=== PATIENT | female | born 1975 | race Caucasian/White ===

== ENCOUNTER → 2016-05-21 | Outpatient (CLI) | payer BC ==
[2016-05-21 11:49] LABS: FREE T4 (FREE THYROXINE) 3.91 ng/dL (0.93-1.71)
== END ==
LOC: MOB LAB 09:45
PROVIDERS: ATTEND Nurse Practitioner Family
DX: F33.1 Major depressive disorder, recurrent, moderate (principal); F41.1 Generalized anxiety disorder; F17.210 Nicotine dependence, cigarettes, uncomplicated
CPT/HCPCS: 36415; 84439; 84443

== ENCOUNTER → 2016-05-24 | Outpatient (CLI) | payer BC | LOC: MOB LAB 16:45 | PROVIDERS: ATTEND Nurse Practitioner Family | DX: E05.90 Thyrotoxicosis, unspecified without thyrotoxic crisis or storm (principal) | CPT/HCPCS: 36415; 84481; 86376 ==

== ENCOUNTER → 2016-05-29 | Outpatient (CLI) | payer BC ==
--- NOTE | 2016-05-30 09:33 | DI ---
THYROID ULTRASOUND, 05/29/2016 4:09 PM Clinical History: Hyperthyroidism Previous Exam: None. Scans are performed through both lobes of the thyroid gland in multiple projections with the high res olution linear array probe. Color Doppler ultrasound is also performed. Both lobes of the thyroid gland revealed an inhomogeneous texture with focal areas of hypoechogenicit y. There is also hypervascularity. These changes can be seen in Graves' disease were the hypoechoic a reas are presumed to represent lymphocytic deposits. The increased vascularity is not quite as intens e as that typically visualized by Doppler ultrasound during the active phase of Graves' disease that is typically termed thyroid "inferno". The right and left lobes measure 17 x 21 x 56 mm, and 17 x 20 x 48 mm, in the AP, transverse, and longitudinal dimensions, respectively. There is no dominant mass or nodule to suspect a solitary hyperfunctioning nodule. Reading: Heterogeneous texture of the thyroid gland with areas of hypoechogenicity and increased vascularity c onsistent with the clinical diagnosis of hyperthyroidism. There is no dominant mass identified.
== END ==
LOC: US 16:07
PROVIDERS: ATTEND Nurse Practitioner Family
DX: E05.90 Thyrotoxicosis, unspecified without thyrotoxic crisis or storm (principal); F41.1 Generalized anxiety disorder
CPT/HCPCS: 76536

== ENCOUNTER 2016-12-03 07:52 | Observation (INO) | payer BC ==
[~2016-12-03 07:52] MED LIST: LIDOCAINE MPF 2% - 5 ML (20 MG/1 ML) ONE; LIDOCAINE W/ SODIUM BICARB 0.5 ML SYR ONE; Lactated Ringers 2,000 ML PRIMARY IV ONE; MIDAZOLAM 5 MG/1 ML ONE; ROCURONIUM 10 MG/1 ML - 5 ML VIAL IVP ONE; Sodium Chloride 0.9% 100 ML IV ONE; fentaNYL Inj 250 MCG/5 ML VIAL ONE
[2016-12-03 08:22] LABS: BILIRUBIN,URINE SMALL (NEG); CLARITY,URINE CLOUDY (CLEAR); COLOR,URINE YELLOW; GLUCOSE, URINE (UA) NEGATIVE (NEG); NITRATE,URINE NEGATIVE (NEG); OCCULT BLOOD,URINE NEGATIVE (NEG); PROTEIN,URINE 30 mg/dl (NEG); UROBILINOGEN,URINE 0.2 EU/dL (0.2)
[2016-12-03 08:27] LABS: URINE SPECIFIC GRAVITY - MAN 1.025
[2016-12-03 08:29] LABS: BACTERIA,URINE MANY; RBC,URINE 0 /hpf; SQUAMOUS EPITHELIAL CELL,UR MANY; URINE SAMPLE TYPE VOIDED SPECIMEN; URINE SPECIFIC GRAVITY - MAN 1.025; WBC,URINE 0
[2016-12-03 08:46] LABS: HEMATOCRIT 37.5 % (37.0-47.0); HEMOGLOBIN 12.6 g/dL (12.0-16.0)
[2016-12-03] MEDS ORDERED: SCOPOLAMINE HYDROBROMIDE 1.5 MG - 1 EACH PATCH TRANSDERM ONE (09:11)
[2016-12-03] MEDS ORDERED: ONDANSETRON 4 MG/2 ML VIAL ONE (09:12)
[2016-12-03] MEDS ORDERED: DEXAMETHASONE SOD PHOSPHATE 4 MG/1 ML VIAL ONE (09:12)
[2016-12-03] MEDS ORDERED: Prochlorperazine Edisylate Inj 10mg/2ml vial IVP PRN (09:21)
[2016-12-03] MEDS ORDERED: fentaNYL Inj 100 MCG/2 ML VIAL IVP PRN (09:21)
[2016-12-03] MEDS ORDERED: NORMAL SALINE 10 ML SYRINGE FLUSH IVP PRN ×3 (09:21→15:47)
[2016-12-03] MEDS ORDERED: Lactated Ringers 1,000 ML PRIMARY IV SCH (09:30)
[2016-12-03] MEDS ORDERED: LIDOCAINE HCL 2 % 10 ML JELLY URO-JECT TOPICAL ONE (09:43)
[2016-12-03] MEDS ORDERED: METOPROLOL TARTRATE 5 MG/5 ML VIAL ONE (10:07)
[2016-12-03] MEDS ORDERED: KETAMINE 100 MG/1 ML - 5 ML ONE (10:12)
[2016-12-03] MEDS ORDERED: SUFENTANIL 50 MCG/1 ML ONE (10:14)
[2016-12-03] MEDS ORDERED: Opium-Belladonna 30-16.2mg 1 EACH SUPP.RECT RECTAL ONE (10:17)
[2016-12-03] MEDS ORDERED: SUGAMMADEX SODIUM 200 MG/2 ML VIAL IV ONE (10:45)
[2016-12-03] MEDS ORDERED: KETOROLAC 30 MG/1 ML VIAL ONE (11:03)
[2016-12-03] MEDS ORDERED: KETOROLAC 15 MG/1 ML VIAL IVP PRN ×2 (11:14→15:47)
[2016-12-03] MEDS ORDERED: Ondansetron ODT Tab 8 MG TAB PO PRN ×2 (11:14→15:47)
[2016-12-03] MEDS ORDERED: oxyCODONE IR Tab 5 MG TAB PO PRN (11:14)
--- NOTE | 2016-12-03 11:19 | OB.OP.NOTE ---
Operative Report Surgeon: Jamie Senior Data Mining Analyst: Chidi Polanco MD Anesthesia Type: General Anesthesia Provider: Daron Alba CRNA Surgery Date: 12/03/16 Preoperative Diagnosis: MMR/Dysmenorrhea Postoperative Diagnosis: Same Procedure: da Simba Hysterectomy/Bilateral Salpingectomy/Cystoscopy Estimated Blood Loss (mL): 20 Fluids: 2400 Complications: None Findings at Surgery: Normal appearing uterus and ovaries. Tubes s/p BTL. No visible evidence of bowel, bladder, or ureter injury. At cysto, both ureters ejected urine and the bladder was intact. Indications for the Procedure: MMR/Dysmenorrhea Description of Procedure: See dictated operative report. Plan: Routine post op care and discharge to home.
[2016-12-03] MEDS ORDERED: IPRATROPIUM/ALBUTEROL SULFATE 3 ML NEB NEB ONE ×2 (11:40→11:45)
[2016-12-03] MEDS: HYDROmorphone 2 MG/1 ML IVP PRN ×9 (11:45→20:59)
[2016-12-03] MEDS ORDERED: Acetaminophen 1000mg Inj 100 ML IV ONE (14:10)
[2016-12-03] MEDS: oxyCODONE IR Tab 5 MG TAB PO PRN ×2 (16:32→20:45)
[2016-12-03] MEDS ORDERED: Rivaroxaban Tab 10 MG TAB PO SCH (21:00)
[2016-12-03] MEDS ORDERED: DOCUSATE 100 MG CAPSULE PO SCH (21:00)
[2016-12-04] MEDS: oxyCODONE IR Tab 5 MG TAB PO PRN ×2 (00:39→06:41)
[2016-12-04] MEDS: HYDROmorphone 2 MG/1 ML IVP PRN ×2 (01:48→05:37)
[2016-12-04 07:04] VITALS: RESP 19; TEMP 98.6
--- NOTE | 2016-12-04 07:45 | DCSUMMARY ---
Hospitalization Summary Admit Date: 12/03/16 Discharge Date: 12/04/16 Primary Diagnosis:: MMR/Dysmenorrhea Hospital Course: The patient underwent an uncomplicated robotic hysterectomy on 12/03. She was kept overnight for observation due to pain. She was feeling much better on POD 1 and was discharged to home in good condition. Exam - Vitals Vital Signs: Vital Signs Temperature 98.6 F Temperature Source Temporal Artery Scan Pulse Rate [Apical] 100 Pulse Rate [Pulse Oximeter] 103 Pulse Rate 102 Respiratory Rate 19 Blood Pressure [Right Arm] 144/82 Blood Pressure 129/84 Pulse Ox 95 Oxygen Flow Rate 3.5 Oxygen Flow Rate 2 Oxygen Delivery Method Room Air Height 5 ft 2 in Weight 142 lb 9.6 oz
--- NOTE | 2016-12-04 07:46 | PDOC(PROG) ---
Subjective Post Op Day: 1 Pain Management: PO [place] Catheter: No Flatus: Yes Diet: Regular Ambulating: Yes Concerns / Additional Information: Ayaka is feeling much better this morning. She would like to go home zena. Assesstment / Plan Assessment / Plan: POD 1, doing well. Discharge to home.
[2016-12-04] MEDS ORDERED: Rivaroxaban Tab 10 MG TAB PO SCH (09:00)
== END 2016-12-04 08:35 | disposition home or self-care (01) ==
LOC: SDSC 07:52 → MED/SURG 15:40
PROVIDERS: ADMIT Obstetrics & Gynecology; ATTEND Obstetrics & Gynecology
DX: N92.0 Excessive and frequent menstruation with regular cycle (principal); N94.6 Dysmenorrhea, unspecified
CPT/HCPCS: 58552; 81001; 84703; 85014; 85018; 94640; 94761; 96374; J0131; J0694; J1100; J1170 ×2; J1885; J2001; J2250; J2405; J2704; J3010; J7620; J7050; J7120

== ENCOUNTER 2016-12-08 21:25 | Emergency (ER) | payer BC ==
[2016-12-08] MEDS ORDERED: Sodium Chloride 0.9% 1,000 ML ONE (21:29)
[2016-12-08] MEDS ORDERED: ONDANSETRON 4 MG/2 ML VIAL IVP ONE (21:32)
[2016-12-08] MEDS ORDERED: Sodium Chloride 0.9% 1,000 ML PRIMARY IV ONE (21:32)
[2016-12-08] MEDS ORDERED: NORMAL SALINE 10 ML SYRINGE FLUSH IVP PRN (21:32)
[2016-12-08] MEDS ORDERED: MORPHINE SULFATE 2 MG/1 ML IV ONE (21:32)
--- NOTE | 2016-12-08 21:35 | PDOC ---
Abdomen/Flank HPI - General Chief Complaint: Abdomen Pain Stated Complaint: abd pain Date Seen by Provider: 12/08/16 Time Seen by Provider: 21:32 Source: POSITIVE: Patient Exam Limitations: POSITIVE: No limitations Nurse's Notes Reviewed & Considered: Yes - Patient Home Medications Home Medications: Home Medications Albuterol/Ipratrop Neb Soln [Duoneb Neb Soln] 3 ml INH Q4H PRN PRN #1 box Rivaroxaban [Xarelto] Sample #30 11/18/15 Albuterol Sulfate [Proair Hfa] 1 - 2 puff INH Q4-6H PRN #1 inhaler 10/09/16 Atovaquone/Proguanil HCl [Malarone 250-100 mg Tablet] 1 tab PO DAILY #37 tab 10/20 Budesonide/Formoterol Fumarate [SYMBICORT] 2 inh IH BID #1 hfa.aer.ad 10/09/16 Montelukast Sodium [Singulair] 1 tab-cap PO QHS #30 tab 10/09/16 Docusate Sodium [Colace] 100 mg PO BID #60 cap 12/03/16 Ondansetron Odt [Zofran Odt] 8 mg PO Q6H PRN #5 tab 12/03/16 oxyCODONE IR Tab [OxyIR Tab] 5 mg PO Q4H PRN #30 tab 12/03/16 Oxycodone HCl/Acetaminophen [Oxycodone-Acetaminophen 5-325] 1 - 2 tab PO Q6-8H PRN #25 tab 12/07/16 - Patient Allergies Allergies/Adverse Reactions: Allergies Allergy/AdvReac Type Severity Reaction Status Date / Time No Known Allergies Allergy Verified 12/03/16 18:20 Past Medical History - heen HEENT History: Other (please comment) Additional HEENT History: ALLERGIC RHINITIS Cardiovascular History: Hypertension Additional Cardiovasular History: PAST-HTN Respiratory History: Asthma, Shortness of Breath Gastrointestinal History: Other (please comment) Additional Gastrointestinal History: ABDOMINAL SURGERY ON MAY 20, 2012. BOWEL RESECTION Genitourinary History: Denies History Endocrine History: Hyperthyroidism Musculoskeletal History: Back Pain, Other (please comment) Prosthesis or Implant: Yes (METAL RODS IN BACK) Additional Musculoskeletal History: spinal stenosis, SCOLIOSIS. 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 ANTIPHOSPHOLIPID SYNDROME. PROTEIN S DEFICIENCY. MESENTERIC THROMBOEMBOLISM Psychiatric History: Depression, Bi Polar Disorder Additional Psychiatric History: PAST ISSUES History of Sexually Transmitted Diseases: Yes (VAGINAL TRICHOMONIASIS) Cancer History: Denies History History of MDRO: No History of Other Communicable Diseases: No Alcohol Use: Rarely Substance Use Type: None Previous Surgical History: Yes Type / Date of Surgery: BACK SURGERY FOR SCOLEOSIS 1988, BILATERAL WRIST SURGERY 1995, TUBAL LIGATION 2003, SINUS SURGERY 2004, COLON RESECTION 2012, T&A , TYMPANIC TUBES Anesthesia Reactions: No Malignant Hyperthermia: No Significant Family History: Cancer, Diabetes, Hypertension ROS - Limitations ROS Limitations: No Limitations Constitution: REPORTS: Fever. DENIES: Chills Cardiovascular: DENIES: Chest Pain Respiratory: REPORTS: Hurts To Breathe, Shortness Of Breath. DENIES: Cough Productive Neurological: DENIES: Dizziness Gastrointestinal: REPORTS: Abdominal Pain. DENIES: Nausea, Vomitting, Diarrhea , Black Stools Endocrine: REPORTS: Other ("Thyroid issue") Musculoskeletal: DENIES: Muscle Aches Genitourinary: DENIES: Dysuria, Hematuria ENT: DENIES: Congestion, Nasal Drainage Abdominal/Flank Pain PE - General Appearance General Appearance: POSITIVE: Alert, Cooperative, Severe Distress - HEENT HEENT: NEGATIVE: Scleral Icterus - Neck Neck: POSITIVE: Normal Inspection, No Apparent Injury - Respiratory Respiratory: POSITIVE: No Respiratory Distress, Breath Sounds Normal. NEGATIVE : Wheezes, Rales, Rhonchi - Cardiovascular Cardiovascular: POSITIVE: Heart Sounds Normal, Tachycardia. NEGATIVE: Murmur - Chest Chest: POSITIVE: Non Tender - Abdomen Additional Abdominal Details: Abdomen is soft, nondistended, she has significant tenderness to palpation in the right upper and right lower quadrants, mild guarding no rebound, hypoactive bowel sounds, no obvious organomegaly. - Skin Skin: POSITIVE: Warm, Dry, No Rash Abdomen Progress - Results Reviewed by me Xrays/CTs/US Reviewed by me: Yes Discussed with Radiologist: Yes Radiology Findings: No acute infection, constipation. Lab Results Reviewed: Yes Lab Results:: Laboratory Results 12/08/16 12/09/16 Range/Units 21:35 00:08 WBC 7.24 (4.8-10.8) 10^3/uL RBC 4.81 (4.20-5.40) 10^6/uL Hgb 12.9 (12.0-16.0) g/dL Hct 37.2 (37.0-47.0) % MCV 77.3 L (81-99) FL MCH 26.8 L (27-31) PG MCHC 34.7 (33-37) g/dL RDW Std Deviation 35.4 L (39-50) fL RDW Coeff of Veronica 12.8 (11.5-14.5) % Plt Count 361 H (140-350) 10*3/uL MPV 9.4 (7.4-12.2) FL Immature Gran % (Auto) 0.1 (0-5) % Neut % (Auto) 48.5 L (50-80) % Lymph % (Auto) 38.8 (10-50) % [place] % (Auto) 10.5 (5-15) % Eos % (Auto) 1.4 (0-8) % Baso % (Auto) 0.7 (0-1) % Immature Gran # (Auto) 0.01 10*3/UL Neut # (Auto) 3.51 10*3/UL Lymph # (Auto) 2.81 10*3/uL [place] # (Auto) 0.76 (0.3-0.8) 10*3/UL Eos # (Auto) 0.10 10*3/UL Baso # (Auto) 0.05 10*3/UL WBC Morphology Comment Normal morphology (NORM) Plt Morphology Comment Normal morphology (NORM) RBC Morph Comment Normal morphology (NORM) Sodium 136 (135-145) meq/L Potassium 4.2 (3.8-5.2) meq/L Chloride 102 (98-112) meq/L Carbon Dioxide 25 (23-33) meq/L Anion Gap 9 (5-20) BUN 9 (7-22) mg/dL Creatinine 0.5 (0.50-1.20) mg/dL Estimated GFR > 60 (>60 ml/min/1.73m(2)) BUN/Creatinine Ratio 18.00 (6-20) Glucose 97 (78-110) mg/dL Calculated Osmolality 280.0 (267-292) mOsm/kg Calcium 9.9 (8.7-10.7) mg/dL Total Bilirubin 0.7 (0.3-1.2) mg/dL AST 37 (8-39) IU/L ALT 40 (9-52) IU/L Alkaline Phosphatase 134 H (38-126) IU/L Total Protein 7.8 (6.1-8.0) g/dL Albumin 4.1 (3.5-4.8) g/dL Globulin 3.7 (2.50-4.10) g/dL Albumin/Globulin Ratio 1.10 L (1.3-2.0) mg/g Amylase 33 (30-110) U/L Lipase 39 (23-300) IU/L Ur Collection Type Clean catch urine Urine Color Yellow Urine Clarity Slightly cloudy (CLEAR) Urine pH 7.5 (5.0-8.5) Ur Specific [place] 1.015 (1.005-1.030) Urine Protein Negative (NEG) mg/dl Urine Glucose (UA) Negative (NEG) mg/dL Urine Ketones Negative (NEG) Urine Occult Blood Negative (NEG) Urine Nitrate Negative (NEG) Urine Bilirubin Negative (NEG) Urine Urobilinogen 0.2 (0.2) EU/dL Ur Leukocyte Esterase Negative (NEG) Ur Culture Indicated? Culture not set - Patient's Progress Pain Medication Addressed: POSITIVE: Yes Re-examine Time: 23:33 Re-Examine Comment: Patient is improved, labs and CT results were discussed with the patient and her . She'll be given a dose of Bentyl as well as lactulose. Status: POSITIVE: Improved MDM / ED Course: Emergency room course: After initial evaluation, an IV was started. Blood work was drawn. She is given Zofran and morphine for pain, which controlled her pain relatively well. Once labs and CT results reviewed, they're discussed the patient and . The diagnosis seems to be constipation at this time. She will be given a dose of lactulose as well as Bentyl. She will be discharged with her prescriptions for both. Return to the emergency department if pain gets significantly worse or if fever develops. - Consult Counseled: POSITIVE: Patient, Family, RE: Lab Results, RE: Radiology Results, RE : DX, RE: Need for F/U Patient Care Time - Estimated PCT Patient Care Time (In Minutes): 20 Vital Signs - Recent Vital Signs Vital Signs: Vital Signs (Last 8 hours) Temp Pulse Resp BP Pulse Ox 12/08/16 23:25 108 H 18 121/75 96 12/08/16 23:15 106 H 18 125/78 96 12/08/16 23:00 103 H 18 126/76 94 12/08/16 22:49 108 H 20 140/86 90 12/08/16 22:15 99 20 125/76 92 12/08/16 21:25 98 F 107 H 20 147/97 98 Discharge Clinical Impression: Constipation due to opioid therapy Discharge Disposition: Discharged to Home Condition: Stable Patient Instructions Given at Discharge: Constipation (ED)
[2016-12-08 21:44] LABS: BASOPHILS # (AUTO) 0.05 10*3/UL; BASOPHILS % (AUTO) 0.7 % (0-1); EOSINOPHILS % (AUTO) 1.4 % (0-8); HEMATOCRIT 37.2 % (37.0-47.0); HEMOGLOBIN 12.9 g/dL (12.0-16.0); LYMPHOCYTES # (AUTO) 2.81 10*3/uL; MEAN CORPUSCULAR HEMOGLOBIN 26.8 PG (27-31); MEAN CORPUSCULAR HGB CONC 34.7 g/dL (33-37); MEAN CORPUSCULAR VOLUME 77.3 FL (81-99); MEAN PLATELET VOLUME 9.4 FL (7.4-12.2); MONOCYTES # (AUTO) 0.76 10*3/UL (0.3-0.8); MONOCYTES % (AUTO) 10.5 % (5-15); NEUTROPHILS # (AUTO) 3.51 10*3/UL; NEUTROPHILS % (AUTO) 48.5 % (50-80); RED BLOOD COUNT 4.81 10^6/uL (4.20-5.40)
[2016-12-08 21:46] LABS: PLATELET MORPHOLOGY COMMENT NORMAL MORPHOLOGY (NORM); RBC MORPHOLOGY COMMENT NORMAL MORPHOLOGY (NORM); WBC MORPHOLOGY COMMENT NORMAL MORPHOLOGY (NORM)
[2016-12-08 21:54] LABS: BLOOD UREA NITROGEN 9 mg/dL (7-22); CALCIUM 9.9 mg/dL (8.7-10.7); EST GLOMERULAR FILTRATION > 60 (>60 ml/min/1.73m(2)); LIPASE 39 IU/L (23-300); SERUM ALBUMIN 4.1 g/dL (3.5-4.8)
[2016-12-08 22:53] VITALS: TEMP 98
--- NOTE | 2016-12-08 23:15 | DI ---
HISTORY: Abdominal pain. COMPARISON: None available. TECHNIQUE: CT of the abdomen and pelvis was performed with contrast and submitted for interpretation. FINDINGS: The heart is normal in size and the lung bases are unremarkable. The liver is grossly unremarkable. The spleen is within normal limits. The gallbladder is grossly u nremarkable. There is no biliary ductal dilatation. The pancreas and adrenal glands are unremarkabl e. The kidneys are normal in size and shape. There is no evidence of renal calculi, hydronephrosis, or solid renal masses. Distal ileal anastomotic suture line is noted and appears intact. There is a moderate amount of stoo l throughout the colon with fecalization of the distal ileum, characteristic of chronic constipation. There is suggestion of a nonobstructed left internal hernia. The remainder of the imaged bowel, me sentery, and omentum are unremarkable without evidence of obstruction or perforation. The appendix i s unremarkable. There is no lymphadenopathy by size criteria. There is no ascites. Partially imaged corrective spinal rods are noted. No acute skeletal pathology is seen. IMPRESSION: 1. No acute intra-abdominal pelvic pathology. 2. Sequela of chronic constipation as described. No evidence of bowel obstruction.
[2016-12-08] MEDS ORDERED: DICYCLOMINE 20 MG TABLET PO ONE (23:25)
[2016-12-08] MEDS ORDERED: LACTULOSE 20 GM PACKET PO ONE (23:26)
[2016-12-08 23:31] VITALS: RESP 18
[2016-12-08] MEDS ORDERED: MORPHINE SULFATE 4 MG/1 ML IVP ONE (23:31)
[2016-12-09 00:08] LABS: BILIRUBIN,URINE NEGATIVE (NEG); CLARITY,URINE Slightly Cloudy (CLEAR); COLOR,URINE YELLOW; GLUCOSE, URINE (UA) NEGATIVE (NEG); NITRATE,URINE NEGATIVE (NEG); OCCULT BLOOD,URINE NEGATIVE (NEG); PH,URINE 7.5 (5.0-8.5); PROTEIN,URINE NEGATIVE (NEG); UROBILINOGEN,URINE 0.2 EU/dL (0.2)
[2016-12-09 00:09] LABS: URINE SAMPLE TYPE CLEAN CATCH URINE
== END 2016-12-09 00:25 | disposition home or self-care (01) ==
LOC: ER 21:25
DX: K59.03 Drug induced constipation (principal); T40.2X5A Adverse effect of other opioids, initial encounter; R10.31 Right lower quadrant pain; R10.11 Right upper quadrant pain
CPT/HCPCS: 74177; 80053; 81003; 82150; 83690; 85025; 96374; 96375; 96376; 99283 ×2; J2270; J2405; J7030